=== PATIENT | male | born 1965 | race Caucasian/White ===

== ENCOUNTER 2020-02-26 06:34 | Outpatient (CLI) | payer OTHER, SELFPAY ==
--- NOTE | 2020-02-26 07:30 | NEURO_ITS ---
TEST: ELECTROENCEPHALOGRAM DIAGNOSIS: EPILEPSY PATIENT NUMBER: [id number] EEG NUMBER: [id number] RECORDING DATE: 02/26/20 CLINICAL HISTORY: Patient reports he started having seizures about 10 years ago and have been very well controlled. Family history of epilepsy. CONDITION OF RECORDING: Awake, drowsy and sleep EEG DESCRIPTION: Basic resting occipital frequency consists of well organized medium voltage 9-10hz alpha mixed with minimal amount of low voltage 15-18hz beta. During drowsiness low voltage beta activity is seen diffusely mixed with waxing and waning posterior alpha rhythms. Bilateral symmetrical sleep activity is seen during sleep. Photic stimulation produced normal drive. Nonparoxysmal. Nonfocal. Nonlateralizing. IMPRESSION: Normal record. [facility]
== END 2020-02-26 06:35 | disposition home or self-care (01) ==
PROVIDERS: PCP Internal Medicine; Visit Provider Psychiatry & Neurology Neurology
DX: G40.909 Epilepsy, unspecified, not intractable, without status epilepticus (principal)
CPT/HCPCS: 95816